=== PATIENT | male | born 1975 | race African-American/Black ===

== ENCOUNTER 2020-03-29 02:26 | Emergency (ER) | payer SELFPAY ==
[2020-03-29 03:59] VITALS: BMI 30.1
[2020-03-29 04:45] VITALS: TEMP 98.5
[2020-03-29] MEDS ORDERED: KETOROLAC TROMETHAMINE 30 MG/1 ML VIAL IM ONE (05:04)
[2020-03-29] MEDS ORDERED: KETOROLAC TROMETHAMINE 30 MG/1 ML VIAL ONE (05:17)
[2020-03-29 06:15] VITALS: BP 153/100; PULSE 95
== END 2020-03-29 06:12 | disposition home or self-care (01) ==
LOC: JER 02:26
PROC: 3E0233Z Introduction of Anti-inflammatory into Muscle, Percutaneous Approach (ICD-10-PCS; principal; 2020-03-29)
DX: R07.9 Chest pain, unspecified (principal)
CPT/HCPCS: 71046-TC-FY; 71101-TC-RT-FY; 99284-25